=== PATIENT | female | born 1955 | race Caucasian/White ===

== ENCOUNTER 2018-10-31 16:14 | Inpatient (IN) | payer MEDICARE, MEDICAID ==
[2018-10-31] MEDS ORDERED: Nicotine Inhaler* 10 MG AMP INH PRN (16:42)
[2018-10-31 17:09] LABS: ABS Basophils 0.1 10^3/ul (0-0.2); ABS Eosinophils 0.1 10^3/ul (0-0.6); ABS Monocytes 0.8 10^3/ul (0-0.8); ABS Neutrophils 7.8 10^3/ul (1.5-7.7); ABS Nucleated RBC 0 10^3/ul; Hematocrit 41 % (35-47); Hemoglobin 14.2 g/dl (12.0-16.0); Lymphocyte % 18.3 %; Mean Corpuscular HGB Conc 35 g/dl (31-36); Mean Corpuscular Hemoglobin 32 pg (27-31); Mean Corpuscular Volume 93 fL (80-97); Nucleated Red Blood Cells % 0; Platelet Count 363 10^3/ul (150-450); Red Blood Count 4.41 10^6/ul (4.00-5.40); Red Cell Distribution Width 13 % (10.5-15); White Blood Count 10.7 10^3/ul (3.5-10.8)
--- NOTE | 2018-10-31 17:16 | ED ---
Psychiatric Complaint - HPI Summary HPI Summary: A 62 y/o female presents to [facility] with a chief complaint of depression on . Neris Delgado, psychologist, referred the patient to the ED for a MHE. The patient claims that her on by the [place] and ever since then she has hated Makenna, saying that Makenna songs trigger her. She also admits to a Hx of bipolar and anxiety. She reports that she has 2 homeless children and lives alone since all of her family is in [place]. She denies HI and SI but states that she has a Hx of SI. She admits to marijuana use. She denies hearing voices or seeing things. She admits to some CP and states that she was recently diagnosed with COPD. She had a CXR recently at [facility], but claims that it did not show PNA. - History Of Current Complaint Chief Complaint: EDMentalHealth Time Seen by Provider: 10/31/18 16:42 Hx Obtained From: Patient Onset/Duration: Gradual Onset, Lasting Weeks, Still Present Timing: Weeks Severity Initially: Moderate Severity Currently: Moderate Character: Depressed Aggravating Factor(s): Nothing Alleviating Factor(s): Nothing Associated Signs And Symptoms: Positive: Social Isolation Related History: Positive For: Prior Psychiatric Issues Has Suicidal: Denies: Thoughts Has Homicidal: Denies: Thoughts - Allergies/Home Medications Allergies/Adverse Reactions: Allergies Allergy/AdvReac Type Severity Reaction Status Date / Time brimonidine Allergy Unknown Verified 10/31/18 22:48 Reaction Details NSAIDS (Non-Steroidal Allergy Anaphylatic Verified 10/31/18 22:48 Anti-Inflamma Shock prednisone Allergy See Comment Verified 10/31/18 22:48 Tetanus Vaccines and Toxoid Allergy Unknown Verified 10/31/18 22:48 Reaction Details Home Medications: Home Medications ALPRAZolam 0.25 mg PO TID PRN 10/31/18 [History Confirmed 10/31/18] Acidoph/L.bulg/Bif.b/S.thermop 1 tab PO DAILY 10/31/18 [History Confirmed ] Advair Diskus 500-50* 1 inh INH DAILY 10/31/18 [History Confirmed 10/31/18] Atorvastatin* 40 mg PO BEDTIME 10/31/18 [History Confirmed 10/31/18] Augmentin TAB 875* 1 tab PO BID 10/31/18 [History Confirmed 10/31/18] Dorzolamide 2% Eye Drop 1 drop LEFT EYE TID 10/31/18 [History Confirmed 10/31/18 ] Duloxetine HCl 60 mg PO DAILY 10/31/18 [History Confirmed 10/31/18] Latanoprost 0.005% Eye Drop 1 drop BOTH EYES BEDTIME 10/31/18 [History Confirmed 10/31/18] Magnesium 250 mg PO BID 10/31/18 [History Confirmed 10/31/18] Melatonin 5 mg PO BEDTIME 10/31/18 [History Confirmed 10/31/18] Proair Respiclick 2 puff INH Q4HR PRN 10/31/18 [History Confirmed 10/31/18] Xolair (NF) 10/31/18 [History] PMH/Surg Hx/FS Hx/Imm Hx Respiratory History: Reports: Hx Chronic Obstructive Pulmonary Disease (COPD) Psychiatric History: Reports: Hx Anxiety, Hx Depression, Hx Bipolar Disorder Infectious Disease History: No Infectious Disease History: Denies: Traveled Outside the [place] in Last 30 Days - Family History Known Family History: Negative: Cardiac Disease - Social History Alcohol Use: None Hx Substance Use: Yes Substance Use Type: Reports: Marijuana Hx Tobacco Use: No Review of Systems Negative: Fever Psychological: Other - positive: feels alone Positive: Depressed, Other - Negative: SI, HI All Other Systems Reviewed And Are Negative: Yes Physical Exam - Summary Physical Exam Summary: GENERAL: Patient is a well-developed and nourished F who is lying comfortable in the stretcher. Patient is not in any acute respiratory distress. HEAD AND FACE: Normocephalic EYES: PERRLA, EOMI x 2. EARS: Hearing grossly intact. MOUTH: Oropharynx within normal limits. NECK: Supple, trachea is midline, no adenopathy, no JVD, no carotid bruit. CHEST: Symmetric, no tenderness at palpation LUNGS: Clear to auscultation bilaterally. No wheezing or crackles. CVS: Regular rate and rhythm, S1 and S2 present, no murmurs or gallops appreciated. ABDOMEN: Soft, non-tender. Bowel sounds are normal. No abdominal abnormal pulsations. EXTREMITIES: Full ROM in all major joints, no edema, no cyanosis or clubbing. NEURO: Alert and oriented x 3. No acute neurological deficits. Speech is normal and follows commands. SKIN: Dry and warm Triage Information Reviewed: Yes Vital Signs On Initial Exam: Initial Vitals Temp Pulse Resp BP Pulse Ox 98 F 76 19 165/95 98 10/31/18 16:35 10/31/18 16:35 10/31/18 16:35 10/31/18 16:35 10/31/18 16:35 Vital Signs Reviewed: Yes Diagnostics - Vital Signs Vital Signs Temp Pulse Resp BP Pulse Ox 10/31/18 16:35 98 F 76 19 165/95 98 - Laboratory Lab Results: Lab Results 10/31/18 Range/Units 16:57 WBC 10.7 (3.5-10.8) 10^3/ul RBC 4.41 (4.00-5.40) 10^6/ul Hgb 14.2 (12.0-16.0) g/dl Hct 41 (35-47) % MCV 93 (80-97) fL MCH 32 H (27-31) pg MCHC 35 (31-36) g/dl RDW 13 (10.5-15) % Plt Count 363 (150-450) 10^3/ul MPV 7.0 L (7.4-10.4) fL Neut % (Auto) 72.9 % Lymph % (Auto) 18.3 % [place] % (Auto) 7.2 % Eos % (Auto) 1.0 % Baso % (Auto) 0.6 % Absolute Neuts (auto) 7.8 H (1.5-7.7) 10^3/ul Absolute Lymphs (auto) 2.0 (1.0-4.8) 10^3/ul Absolute Monos (auto) 0.8 (0-0.8) 10^3/ul Absolute Eos (auto) 0.1 (0-0.6) 10^3/ul Absolute Basos (auto) 0.1 (0-0.2) 10^3/ul Absolute Nucleated RBC 0 10^3/ul Nucleated RBC % 0 Result Diagrams: 10/31/18 16:57 10/31/18 16:57 Lab Statement: Any lab studies that have been ordered have been reviewed, and results considered in the medical decision making process. - EKG 17:48 Cardiac Rate: NL - 69 bpm EKG Rhythm: Sinus Rhythm Summary of EKG Findings: NSR at 69 bpm with no ischemic changes. Re-Evaluation - Re-Evaluation First Eval Re-Evaluation Time: 18:00 Change: Unchanged Comment: Patient is medically cleared for MHE. Course/Dx - Course Course Of Treatment: A 62 y/o female presents to [facility] with a chief complaint of depression on 10/31/18. Workup is remarkable with a normal physical exam. Lab work done and WNL. Troponin I was 0.00. Her EKG revealed NSR at 69 bpm with no ischemic changes. The patient has been medically cleared for MHE. Patient will be signed out at shift change to Dr. Yancey pending MHE. Dx: psych evaluation - Differential Dx/Clinical Impression Provider Diagnosis: Evaluation by psychiatric service required Discharge - Sign-Out/Discharge Documenting (check all that apply): Sign-Out Patient Signing out patient TO: Navarro Yancey - pending MHE - Discharge Plan Condition: Stable Disposition: ADMITTED TO [facility] - Billing Disposition and Condition Condition: STABLE Disposition: Admitted to [facility] - Attestation Statements Document Initiated by Scribe: Yes Documenting Scribe: Logan Garcia Provider For Whom Scribe is Documenting (Include Credential): Marine Martinez MD Scribe Attestation: I, Logan Garcia, scribed for Marine Martinez MD on 11/03/18 at 1122. Scribe Documentation Reviewed: Yes Provider Attestation: The documentation as recorded by the Logan cronin accurately reflects the service I personally performed and the decisions made by me, Radha Martinez MD Status of Scribe Document: Viewed
[2018-10-31 17:26] LABS: ALT 23 U/L (7-52); AST 21 U/L (13-39); Albumin 4.2 g/dL (3.2-5.2); Albumin/Globulin Ratio 1.4 (1-3); Alkaline Phosphatase 79 U/L (34-104); Anion Gap 6 mmol/L (2-11); BUN/Creatinine Ratio 16.9 (8-20); Blood Urea Nitrogen 10 mg/dL (6-24); CO2 Carbon Dioxide 27 mmol/L (22-32); Calcium 9.3 mg/dL (8.6-10.3); Chloride 106 mmol/L (101-111); EGFR Non-African American 102.6 (>60); Globulin 2.9 g/dL (2-4); Glucose 99 mg/dL (70-100); Potassium 3.8 mmol/L (3.5-5.0); Sodium 139 mmol/L (135-145); Total Protein 7.1 g/dL (6.4-8.9)
[2018-10-31 17:39] LABS: Acetaminophen < 15 mcg/mL; Alcohol < 10 mg/dL (<10); Salicylate < 2.50 mg/dL (<30)
[2018-10-31 17:52] LABS: Urine Appearance Clear; Urine Bilirubin Negative (Negative); Urine Blood Negative (Negative); Urine Color Yellow; Urine Glucose Negative (Negative); Urine Ketones Negative (Negative); Urine Nitrite Negative (Negative); Urine Protein Negative (Negative); Urine Specific Gravity 1.013 (1.010-1.030); Urine Urobilinogen Negative (Negative)
[2018-10-31 17:55] LABS: TSH (Thyroid Stimulating Horm) 2.79 mcIU/mL (0.34-5.60)
[2018-10-31] MEDS ORDERED: Mouth Piece, Nicotine* 1 EACH CARTRIDGE INH ONE (18:00)
[2018-10-31 18:05] LABS: Barbiturates Urine Screen None Detected (None Detect); Benzodiazepine Urine Screen None Detected (None Detect); Urine Cannabinoids Screen Presumptive Positive (None Detect)
--- NOTE | 2018-10-31 19:00 | ED ---
Progress - Progress Note Progress Note: The patient was signed out by Dr. Martinez to Dr. Yancey, awaiting mental health evaluation. Re-Evaluation - Re-Evaluation First Eval Re-Evaluation Time: 18:00 Change: Unchanged Comment: Patient is medically cleared for MHE. Course/Dx - Course Course Of Treatment: Patient was signed out by Dr. Martinez to Dr. Yancey, awaiting MHE. They have been cleared for admission. - Diagnoses Provider Diagnoses: Evaluation by psychiatric service required Discharge - Sign-Out/Discharge Documenting (check all that apply): Patient Departure - admission, Receiving Sign-Out Receiving patient FROM: Marine Martinez - Discharge Plan Condition: Stable Disposition: ADMITTED TO [facility] - Billing Disposition and Condition Condition: STABLE Disposition: Admitted to [facility] - Attestation Statements Document Initiated by Thaliae: Yes Documenting Scribe: Alonso Fitch Provider For Whom Edibe is Documenting (Include Credential): Navarro Yancey MD Scribe Attestation: Alonso Perdue, edibed for Navarro Yancey MD on 11/01/18 at 0210. Scribe Documentation Reviewed: Yes Provider Attestation: The documentation as recorded by the Alonso cronin accurately reflects the service I personally performed and the decisions made by , Navarro Yancey MD Status of Scribe Document: Viewed
[2018-10-31] MEDS ORDERED: Amoxicillin/Clavulanate TAB* 875 MG PO ONE (20:43)
[2018-11-01] MEDS ORDERED: Acetaminophen TAB* 325 MG PO PRN (00:24)
[2018-11-01] MEDS ORDERED: Al Hydrox/Mg Hydrox/Simet LIQ* 30 ML UDC PO PRN (00:24)
[2018-11-01] MEDS ORDERED: Albuterol HFA INHALER* 8 gm MDI INH PRN (00:41)
[2018-11-01] MEDS: MELATONIN 5 MG PO SCH ×2 (01:00→20:13)
[2018-11-01] MEDS: PTO: Dorzolamide 2% OPTH (NF) 10 ML BTL LEFT EYE SCH ×4 (01:00→20:06)
[2018-11-01] MEDS: Atorvastatin* 40 MG TAB PO SCH ×2 (01:00→20:07)
[2018-11-01] MEDS: MAGNESIUM 250 MG PO SCH ×3 (01:00→20:13)
[2018-11-01] MEDS: Amoxicillin/Clavulanate TAB* 875 MG PO SCH ×3 (01:00→20:07)
[2018-11-01] MEDS: Latanoprost 0.005%* 2.5 ml BTL BOTH EYES SCH ×2 (01:05→20:07)
[2018-11-01] MEDS: ALPRAZolam TAB* 0.25 MG PO PRN ×2 (06:35→13:13)
[2018-11-01 07:14] LABS: HDL Cholesterol 61.2 mg/dL
[2018-11-01] MEDS: DULoxetine DR CAP* 60 MG CAP.DR PO SCH (09:10)
[2018-11-01] MEDS: Vitamin THERAPEUTIC TAB PO SCH (09:10)
[2018-11-01] MEDS: PTO: Fluticasone-Salmeterol 500-50* DISKUS INH SCH (09:11)
[2018-11-01] MEDS: [UNRECOGNIZED DRUG - OTHER] PO SCH (09:13)
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
[2018-11-01] MEDS: LORazepam TAB(*) 1 MG PO PRN (20:00)
[2018-11-01] MEDS: Lithium Carbonate TAB* 300 MG PO SCH (20:08)
[2018-11-01] MEDS: LORazepam TAB(*) 0.5 MG PO SCH (23:23)
[2018-11-02] MEDS: LORazepam TAB(*) 0.5 MG PO SCH ×3 (08:36→19:50)
[2018-11-02] MEDS: DULoxetine DR CAP* 60 MG CAP.DR PO SCH (08:36)
[2018-11-02] MEDS: MAGNESIUM 250 MG PO SCH ×2 (08:37→19:51)
[2018-11-02] MEDS: PTO: Fluticasone-Salmeterol 500-50* DISKUS INH SCH (08:37)
[2018-11-02] MEDS: Vitamin THERAPEUTIC TAB PO SCH (08:37)
[2018-11-02] MEDS: PTO: Dorzolamide 2% OPTH (NF) 10 ML BTL LEFT EYE SCH ×3 (08:38→19:50)
[2018-11-02] MEDS: Amoxicillin/Clavulanate TAB* 875 MG PO SCH ×2 (13:23→19:50)
[2018-11-02] MEDS: [UNRECOGNIZED DRUG - OTHER] PO SCH ×2 (13:52→14:12)
--- NOTE | 2018-11-02 17:31 | PN ---
Subjective - Subjective Date of Service: 11/02/18 Service Type: 05078 Hosp care 15 min low complexity Subjective: Cristela is very restless, pacing and talking. Says she has been getting worse and ask for a solution. Also trying to convince me that she cannot tolerate almost all psychotropics. Keeps talking about her hospitalizations, therapies, therapist, her life, finances jumping from topic to topic. Denies hallucinations , delusions, SI or HI. Objective - Appearance Appearance: Healthy Appearing Dysmorphic Features: No Hygiene: Normal Grooming: Disheveled - Behavior Psychomotor Activities: Abnormal-Increased Exhibits Abnormal Movement: No - Attitude and Relatedness Attitude and Relatedness: Irritable - Speech Quality: Pressured Latencies: Short Quantity: Copious - Mood Patient's Decription of Mood: "Terrible" - Affect Observed Affect: Expansive - Thought Process Patient's Thought Process: Tangential, Filght of Ideas Thought Content: No Passive Wish, No Suicidal Planning, No Homicidal Ideation, No Paranoid Ideation - Sensorium Experiencing Hallucinations: No, Sensorium is Clear Type of Hallucinations: Visual: No, Auditory: No, Command: No - Level of Consciousness Level of Consciousness: Alert Orientation: Yes Intact, Yes Orientated to Time, Yes Orientated to Place, Yes Orientated to Person - Impulse Control Impulse Control: Tenuous - Insight and Judgement Insight and Judgement: Poor - Group Participation Particating in Group Activities: No - Medication Management Medication Management Adherence: Yes Assessment - Assessment Merits Inpatient Hospitalization: For Immediate Safety, For Stabilization, To Initiate Treatment, For Discharge Planning Clinical Impression: Hypomanic at this time. Plan - Plan Treatment Plan: Name: CRISTELA GRANADOS ROSE Birthdate: 1955 [id number] Continued Medication Management: Continue Outpt Medication Medications: Current Medications Acetaminophen (Tylenol Tab*) 650 mg PO Q4H PRN PRN Reason: PAIN or TEMP > 101 F Al Hydrox/Mg Hydrox/Simethicone (Maalox Plus*) 30 ml PO Q4H PRN PRN Reason: INDIGESTION Albuterol (Ventolin Hfa Inhaler*) 2 puff INH Q4H PRN PRN Reason: SHORTNESS OF BREATH Amoxicillin/Clavulanate Potassium (Augmentin Tab*) 875 mg PO BID [facility] Last Admin: 11/02/18 13:23 Dose: Not Given Atorvastatin Calcium (Lipitor*) 40 mg PO BEDTIME [facility] Last Admin: 11/01/18 20:07 Dose: 40 mg Dorzolamide HCl (Trusopt 2% Opth (Nf)) 1 drop LEFT EYE TID [facility] Last Admin: 11/02/18 14:13 Dose: 1 drop Duloxetine HCl (Cymbalta Cap*) 60 mg PO DAILY [facility] Last Admin: 11/02/18 08:36 Dose: 60 mg Latanoprost (Xalatan 0.005%*) 1 drop BOTH EYES BEDTIME [facility] Last Admin: 11/01/18 20:07 Dose: 1 drop Primrose Carbonate (Primrose Carbonate Tab*) 300 mg PO BEDTIME [facility] Last Admin: 11/01/18 20:08 Dose: 300 mg Lorazepam (Ativan Tab(*)) 0.5 mg PO TID [facility] Last Admin: 11/02/18 14:12 Dose: 0.5 mg Lorazepam (Ativan Tab(*)) 1 mg PO BEDTIME PRN PRN Reason: INSOMNIA Last Admin: 11/01/18 20:00 Dose: 1 mg Multivitamins (Theragran Tab*) 1 tab PO DAILY [facility] Last Admin: 11/02/18 08:37 Dose: 1 tab Pto: Magnesium 250 (Mg Tablets) 1 dose PO BID [facility] Last Admin: 11/02/18 08:37 Dose: 1 dose Pto: Melatonin 5 Mg (Tablets) 1 dose PO BEDTIME [facility] Last Admin: 11/01/18 20:13 Dose: 1 dose Pto: Probiotic (Wafers) 1 dose PO QAM [facility] Last Admin: 11/02/18 14:12 Dose: 1 dose Fluticasone/Salmeterol (Advair Diskus 500-50*) 1 puff INH DAILY [facility] Last Admin: 11/02/18 08:37 Dose: 1 puff - Discharge Plan Discharge Plan: Outpatient Follow Up Outpatient Program: TBD
[2018-11-02] MEDS: Atorvastatin* 40 MG TAB PO SCH (19:51)
[2018-11-02] MEDS: Lithium Carbonate TAB* 300 MG PO SCH (19:51)
[2018-11-02] MEDS: MELATONIN 5 MG PO SCH (19:51)
[2018-11-02] MEDS: Latanoprost 0.005%* 2.5 ml BTL BOTH EYES SCH (19:53)
[2018-11-03] MEDS: LORazepam TAB(*) 1 MG PO PRN (02:29)
[2018-11-03] MEDS: DULoxetine DR CAP* 60 MG CAP.DR PO SCH (08:28)
[2018-11-03] MEDS: Vitamin THERAPEUTIC TAB PO SCH (08:28)
[2018-11-03] MEDS: LORazepam TAB(*) 0.5 MG PO SCH ×3 (08:28→19:56)
[2018-11-03] MEDS: PTO: Fluticasone-Salmeterol 500-50* DISKUS INH SCH (08:29)
[2018-11-03] MEDS: Amoxicillin/Clavulanate TAB* 875 MG PO SCH ×2 (08:30→19:55)
[2018-11-03] MEDS: MAGNESIUM 250 MG PO SCH ×2 (08:30→20:00)
[2018-11-03] MEDS: PTO: Dorzolamide 2% OPTH (NF) 10 ML BTL LEFT EYE SCH ×3 (08:30→19:55)
[2018-11-03] MEDS: [UNRECOGNIZED DRUG - OTHER] PO SCH (08:30)
[2018-11-03] MEDS: Atorvastatin* 40 MG TAB PO SCH (19:55)
[2018-11-03] MEDS: MELATONIN 5 MG PO SCH (19:56)
[2018-11-03] MEDS: Latanoprost 0.005%* 2.5 ml BTL BOTH EYES SCH (19:57)
[2018-11-03] MEDS: Lithium Carbonate TAB* 300 MG PO SCH (19:57)
[2018-11-04] MEDS: LORazepam TAB(*) 1 MG PO PRN (02:00)
[2018-11-04] MEDS: PTO: Dorzolamide 2% OPTH (NF) 10 ML BTL LEFT EYE SCH ×3 (09:06→20:00)
[2018-11-04] MEDS: LORazepam TAB(*) 0.5 MG PO SCH ×3 (09:07→20:01)
[2018-11-04] MEDS: Amoxicillin/Clavulanate TAB* 875 MG PO SCH ×2 (09:07→20:02)
[2018-11-04] MEDS: DULoxetine DR CAP* 60 MG CAP.DR PO SCH (09:07)
[2018-11-04] MEDS: PTO: Fluticasone-Salmeterol 500-50* DISKUS INH SCH (09:08)
[2018-11-04] MEDS: [UNRECOGNIZED DRUG - OTHER] PO SCH (09:08)
[2018-11-04] MEDS: Lithium Carbonate TAB* 300 MG PO SCH ×2 (09:08→20:03)
[2018-11-04] MEDS: MAGNESIUM 250 MG PO SCH ×2 (09:08→20:04)
[2018-11-04] MEDS: Vitamin THERAPEUTIC TAB PO SCH (09:08)
--- NOTE | 2018-11-04 12:22 | PN ---
Subjective - Subjective Date of Service: 11/04/18 Service Type: 23289 Hosp care 15 min low complexity Subjective: The patient is seen in Holiday coverage for TORREY, Magalis Dunbar. Rubina is highly somatic, complaining hyperverbally about cramps and twitching in various parts of her body and identifying several shortcomings of the unit, including being religiously prosthelytized by peers. She is tolerating lithium well so far and I understand that Dr. Holliday increased the dose over the weekend. Rubina has signed a hypergraphically written 72-hour release request and AIDEN Barakat will try to talk her out of this. The patient denies SI. Objective - Appearance Appearance: Well Developed/Nourished Dysmorphic Features: No Hygiene: Normal Grooming: Well Kept - Behavior Psychomotor Activities: Normal Exhibits Abnormal Movement: No - Attitude and Relatedness Attitude and Relatedness: Cooperative Eye Contact: Good - Speech Quality: Pressured Latencies: Short Quantity: Copious - Mood Patient's Decription of Mood: "Good" - Affect Observed Affect: Fair Affect Consistent with: Dysphoria - Thought Process Patient's Thought Process: Tangential Thought Content: No Passive Wish, No Suicidal Planning, No Homicidal Ideation, No Paranoid Ideation - Sensorium Experiencing Hallucinations: No, Sensorium is Clear Type of Hallucinations: Visual: No, Auditory: No, Command: No - Level of Consciousness Level of Consciousness: Alert Orientation: Yes Intact, Yes Orientated to Time, Yes Orientated to Place, Yes Orientated to Person - Impulse Control Impulse Control: Tenuous - Insight and Judgement Insight and Judgement: Fair - Group Participation Particating in Group Activities: Yes - Medication Management Medication Management Adherence: Yes Assessment - Assessment Merits Inpatient Hospitalization: For Immediate Safety, For Stabilization Inpatient DSM-V Dx: F31.63 Clinical Impression: 62 y.o. , white female with a history of bipolar and borderline personality disorders admitted on a voluntary status due to SI. MHU: Problem List - Patient Problems (1) Bipolar affective, mixed, severe Current Visit: Yes Status: Acute Priority: High Code(s): F31.63 - BIPOLAR DISORD, CRNT EPSD MIXED, SEVERE, W/O PSYCH FEATURES SNOMED Code(s): 119312007696 Plan - Plan Treatment Plan: Name: RUBINA ROSE Birthdate: 1955 [id number] The patient is receiving lithium therapy and awaits a blood level to guide optimization of her dose. She is also on duloxetine and melatonin. Continue inpatient treatment. Continued Medication Management: Different Medication Medications: Current Medications Acetaminophen (Tylenol Tab*) 650 mg PO Q4H PRN PRN Reason: PAIN or TEMP > 101 F Al Hydrox/Mg Hydrox/Simethicone (Maalox Plus*) 30 ml PO Q4H PRN PRN Reason: INDIGESTION Albuterol (Ventolin Hfa Inhaler*) 2 puff INH Q4H PRN PRN Reason: SHORTNESS OF BREATH Amoxicillin/Clavulanate Potassium (Augmentin Tab*) 875 mg PO BID [facility] Last Admin: 11/04/18 09:07 Dose: Not Given Atorvastatin Calcium (Lipitor*) 40 mg PO BEDTIME [facility] Last Admin: 11/03/18 19:55 Dose: 40 mg Dorzolamide HCl (Trusopt 2% Opth (Nf)) 1 drop LEFT EYE TID [facility] Last Admin: 11/04/18 09:06 Dose: 1 drop Duloxetine HCl (Cymbalta Cap*) 60 mg PO DAILY [facility] Last Admin: 11/04/18 09:07 Dose: 60 mg Latanoprost (Xalatan 0.005%*) 1 drop BOTH EYES BEDTIME [facility] Last Admin: 11/03/18 19:57 Dose: 1 drop [place] Carbonate ([place] Carbonate Tab*) 300 mg PO BID [facility] Last Admin: 11/04/18 09:08 Dose: 300 mg Lorazepam (Ativan Tab(*)) 0.5 mg PO TID [facility] Last Admin: 11/04/18 09:07 Dose: 0.5 mg Lorazepam (Ativan Tab(*)) 1 mg PO BEDTIME PRN PRN Reason: INSOMNIA Last Admin: 11/04/18 02:00 Dose: 1 mg Multivitamins (Theragran Tab*) 1 tab PO DAILY [facility] Last Admin: 11/04/18 09:08 Dose: 1 tab Pto: Magnesium 250 (Mg Tablets) 1 dose PO BID [facility] Last Admin: 11/04/18 09:08 Dose: 1 dose Pto: Melatonin 5 Mg (Tablets) 1 dose PO BEDTIME [facility] Last Admin: 11/03/18 19:56 Dose: 1 dose Pto: Probiotic (Wafers) 1 dose PO QAM [facility] Last Admin: 11/04/18 09:08 Dose: 1 dose Fluticasone/Salmeterol (Advair Diskus 500-50*) 1 puff INH DAILY [facility] Last Admin: 11/04/18 09:08 Dose: 1 puff - Discharge Plan Discharge Plan: Inpatient Hospitalization
[2018-11-04] MEDS: Atorvastatin* 40 MG TAB PO SCH (20:03)
[2018-11-04] MEDS: MELATONIN 5 MG PO SCH (20:04)
[2018-11-04] MEDS: Latanoprost 0.005%* 2.5 ml BTL BOTH EYES SCH (20:07)
[2018-11-05] MEDS: LORazepam TAB(*) 1 MG PO PRN (01:02)
[2018-11-05] MEDS: Amoxicillin/Clavulanate TAB* 875 MG PO SCH (08:02)
[2018-11-05] MEDS: Lithium Carbonate TAB* 300 MG PO SCH (08:06)
[2018-11-05] MEDS: DULoxetine DR CAP* 60 MG CAP.DR PO SCH (08:06)
[2018-11-05] MEDS: Vitamin THERAPEUTIC TAB PO SCH (08:06)
[2018-11-05] MEDS: PTO: Dorzolamide 2% OPTH (NF) 10 ML BTL LEFT EYE SCH (08:06)
[2018-11-05] MEDS: LORazepam TAB(*) 0.5 MG PO SCH (08:06)
[2018-11-05] MEDS: PTO: Fluticasone-Salmeterol 500-50* DISKUS INH SCH (08:07)
[2018-11-05] MEDS: MAGNESIUM 250 MG PO SCH (08:08)
[2018-11-05] MEDS: [UNRECOGNIZED DRUG - OTHER] PO SCH (08:08)
[2018-11-05 09:57] VITALS: BP 157/76
--- NOTE | 2018-11-05 15:18 | DCNOTE ---
Subjective - Subjective Service Types: [id number] [facility] Day Mgmt simple under 30 min Discharge Date: 11/05/18 Subjective: Patient reports desire to be discharged and submitted a 72-hour notice. She denies suicidality or HI/. She is able to clearly vocalize discharge plan, including medications and appointments. She states concern for her safety if she continues hospitalization due to unit acuity. Objective - Appearance Appearance: Well Developed/Nourished Dysmorphic Features: No Hygiene: Normal Grooming: Well Kept - Behavior Psychomotor Activities: Normal Exhibits Abnormal Movement: No - Attitude and Relatedness Attitude and Relatedness: Cooperative Eye Contact: Good - Speech Quality: Unpressured Latencies: Normal Quantity: Appropriate - Mood Patient's Decription of Mood: "Good" - Affect Observed Affect: Good Affect Consistent with: Euthymia - Thought Process Patient's Thought Process: Coherent, Goal Directed Thought Content: No Passive Wish, No Suicidal Planning, No Homicidal Ideation, No Paranoid Ideation - Sensorium Experiencing Hallucinations: No, Sensorium is Clear Type of Hallucinations: Visual: No, Auditory: No, Command: No - Level of Consciousness Level of Consciousness: Alert Orientation: Yes Intact, Yes Orientated to Time, Yes Orientated to Place, Yes Orientated to Person - Impulse Control Impulse Control: Intact - Insight and Judgement Insight and Judgement: Fair - Group Participation Particating in Group Activities: Yes - Medication Management Medication Management Adherence: Yes DC Assessment - Assessment Clinical Impression: 62 y.o. , white female with a history of bipolar and borderline personality disorders admitted on a voluntary status due to SI. She reports improvement in mood and denies lethality. Patient submitted 72-hour notice and no longer meets criteria for acute hospitalization. Merits Inpatient Hospitalization: No Clear for Discharge: Adequate Clinical Respons, Acceptable Safety Profile Inpatient DSM-V Dx: F31.63 Discharge Planning - Discharge Planning Discharge Plan: Outpatient Follow Up Outpatient Program: Private Clinician(s) Recommendations for Continuing Care: Medication Management, Psychotherapy, Primary Care Followup Medications: Current Medications Acetaminophen (Tylenol Tab*) 650 mg PO Q4H PRN PRN Reason: PAIN or TEMP > 101 F Al Hydrox/Mg Hydrox/Simethicone (Maalox Plus*) 30 ml PO Q4H PRN PRN Reason: INDIGESTION Albuterol (Ventolin Hfa Inhaler*) 2 puff INH Q4H PRN PRN Reason: SHORTNESS OF BREATH Amoxicillin/Clavulanate Potassium (Augmentin Tab*) 875 mg PO BID [facility] Last Admin: 11/04/18 09:07 Dose: Not Given Atorvastatin Calcium (Lipitor*) 40 mg PO BEDTIME [facility] Last Admin: 11/03/18 19:55 Dose: 40 mg Dorzolamide HCl (Trusopt 2% Opth (Nf)) 1 drop LEFT EYE TID [facility] Last Admin: 11/04/18 09:06 Dose: 1 drop Duloxetine HCl (Cymbalta Cap*) 60 mg PO DAILY [facility] Last Admin: 11/04/18 09:07 Dose: 60 mg Latanoprost (Xalatan 0.005%*) 1 drop BOTH EYES BEDTIME [facility] Last Admin: 11/03/18 19:57 Dose: 1 drop [place] Carbonate ([place] Carbonate Tab*) 300 mg PO BID [facility] Last Admin: 11/04/18 09:08 Dose: 300 mg Lorazepam (Ativan Tab(*)) 1 mg PO BEDTIME PRN PRN Reason: INSOMNIA Last Admin: 11/04/18 02:00 Dose: 1 mg Multivitamins (Theragran Tab*) 1 tab PO DAILY [facility] Last Admin: 11/04/18 09:08 Dose: 1 tab Pto: Magnesium 250 (Mg Tablets) 1 dose PO BID [facility] Last Admin: 11/04/18 09:08 Dose: 1 dose Pto: Melatonin 5 Mg (Tablets) 1 dose PO BEDTIME [facility] Last Admin: 11/03/18 19:56 Dose: 1 dose Pto: Probiotic (Wafers) 1 dose PO QAM [facility] Last Admin: 11/04/18 09:08 Dose: 1 dose Fluticasone/Salmeterol (Advair Diskus 500-50*) 1 puff INH DAILY [facility] Last Admin: 11/04/18 09:08 Dose: 1 puff Discharge Planning: Prescriptions provided for discharge [x] Yes [] No Follow up care details as per social work arrangements. Patient response to discharge plan: [x] eager for discharge [x] agreeable with discharge plan [] ambivalent about discharge [] disagrees with discharge today
--- NOTE | 2018-11-06 22:26 | DS ---
DISCHARGE SUMMARY: DATE OF ADMISSION: 10/31/18 DATE OF DISCHARGE: 11/05/18 PROVIDER: Magails Dunbar NP, in Psychiatry. SUPERVISING PHYSICIAN: Dr. Shay Saunders. DIAGNOSES: [place] I: Bipolar disorder, type 1. [place] II: Borderline personality disorder. CONDITION AT THE TIME OF DISCHARGE: Improved. Psychiatrically cleared, more stable. She was social with some peers, although she was irritable at times and did not appreciate all interventions from s [facility]. She did well here psychiatrically. She tolerated lithium pretty well. She will go back to at tending her treatment in [place], which includes family counseling services and Dr. Bala Lopez. MENTAL STATUS EXAM: At the time of discharge, Rubina is calm, cooperative, and makes good eye contac t. She is alert and oriented x3. Her grooming is adequate. Her speech pace is normal. Her thought processes are logical. She is not psychotic or delusional. She denies AH, VH, SI, and HI. Her insi ght is fair. Her judgment is fair. She is willing to follow up and she is urged to see her psycholo Neris villalba. DISCHARGE INSTRUCTIONS TO THE PATIENT: A. Medications: 1. Duloxetine 60 mg daily, dispensed 7. 2. [place] carbonate 300 mg b.i.d., dispensed 14. 3. Lorazepam 1 mg p.o. at bedtime, dispensed 7, p.r.n. anxiety. B. Diet is regular. C. Activities: As tolerated. Rubina is a nonsmoker. There are no studies pending at the time of d ischarge. D. Followup care: She is going to family counseling services in [place] on 11/07/18 for an intake at 2 p[address] and she is seeing Dr. Bala Lopez on 11/06/18 at 1 p.m. E. Substance use followup is not indicated. HOSPITAL COURSE: Part A: Chief Complaint: "My doctor said if I don't call her by 3 p.m., she is trav ling the police." The patient is a 62-year-old white woman with a history of several diagnos es including PTSD, borderline personality disorder, generalized anxiety disorder, bipolar disorder, a nd ADHD, who arrived, brought in by a friend by car to see her on a voluntary status following babatunde negro appointments with her prescribers and therapist, who all believe that she needs to go to the hospit al due to her statements of feeling out of control and having thoughts of her own . Although cecil woo denies the term suicidal ideation, she describes suicide plans and a worry that she will act on the m. She is a woman who has multiple health problems. She is extremely emotional. She has been follo wed by her therapist, psychologist, and her primary care doctor in the outpatient world. She is curr ently having symptoms of crying past the ability to being consoled. She is incredibly irritable. Cecil woo is hypergraphic. She has been prescribed Xanax in order to calm herself down, but she finds this i s only helpful at bedtime and that it helps her go to sleep. Her stressors include financial difficu lties, her own mental illnesses, lack of support, and her relationship in which there is sexual compo nent but there is no romantic component in addition to the fact that he is living with her without shakir sungg jason. She is an anxious woman. She is worried. She is tensed. She has difficulty concentratin g. She is irritable. She is restless. She makes excessive hand gestures and her sleep is disturbed . In addition, she is distractible. She is making some bizarre activities like getting angry and ki cking a turkey at someone. She has flight of ideas when she was talking, deficits, and is very very chatty. Part B: Psychiatric treatment was rendered. Rubina was admitted to the adult behavioral unit and pl aced on 15-minute checks for safety. Rubina herself did well on the unit in that she was safe. She interacted with some peers well, interacted with some staff well, but she also became extremely irrit able and would shout at staff and be somewhat demanding and also command other patients to do as she wished. She did not tolerate rules not being followed. We did start lithium with her, which was inc reased to 300 mg b.i.d. She also was taking Ativan at bedtime, this was a substitute for her Xanax w hich she agreed was not an excellent choice for her. She has a long list of medications that do not work for her and lithium is one that she has not tried. It did make her cry to think about it becaus e she realized that that is how sick she is, that she actually needs that medication. Her brother was contacted. She chose not to speak with him. He states that they have been in contact for their who le lives together and he trusts that she will be getting the care that she needs. She did get frustr ated on the unit with the acuity of some patients. She did not appreciate their baptist views that they apparently attempted to impress upon her. So, she signed a 72-hour notice which was honored be cause she no longer meets criteria for being on the unit such as harm to herself or others. She is, however, symptomatic and would benefit from continued treatment. Nevertheless, she has improved enou gh to go home and her ainsley and mixed symptoms have somewhat subsided. MAGALIS DUNBAR, COTY [id number]/[facility] #: [id number]
== END 2018-11-05 11:40 | disposition home or self-care (01) | DRG 885 ==
LOC: ED 16:14 → BSU 21:50 → OBSVTOIN 21:50 → BSU 11-01 10:42
PROVIDERS: ADMIT Psychiatry & Neurology Psychiatry; ATTEND Psychiatry & Neurology Psychiatry
DX: F31.63 Bipolar disorder, current episode mixed, severe, without psychotic features (principal); F60.3 Borderline personality disorder; F43.10 Post-traumatic stress disorder, unspecified; F41.1 Generalized anxiety disorder; F90.9 Attention-deficit hyperactivity disorder, unspecified type; Z79.899 Other long term (current) drug therapy; F12.90 Cannabis use, unspecified, uncomplicated; J44.9 Chronic obstructive pulmonary disease, unspecified; H40.9 Unspecified glaucoma; M81.0 Age-related osteoporosis without current pathological fracture; K90.0 Celiac disease; M79.7 Fibromyalgia; Z88.6 Allergy status to analgesic agent; Z88.7 Allergy status to serum and vaccine; Z88.8 Allergy status to other drugs, medicaments and biological substances; Z81.8 Family history of other mental and behavioral disorders
CPT/HCPCS: 36415; 80053; 80061; 80307; 80320; 80329; 81003; 83036; 84443; 84484; 85025; 93005; 99222; 99231; 99238; 99285; A9270-GY; G0480